=== PATIENT | male | born 2000 | race Caucasian/White ===

== ENCOUNTER 2019-11-06 17:00 | Emergency (ER) | payer OTHER ==
[2019-11-06] MEDS ORDERED: CIPRO500 MG PO (17:21)
== END 2019-11-06 17:42 | disposition home or self-care (01) ==
LOC: ED 17:00
DX: S99.921A Unspecified injury of right foot, initial encounter (principal); W22.8XXA Striking against or struck by other objects, initial encounter; Y93.89 Activity, other specified; Y92.89 Other specified places as the place of occurrence of the external cause; Y99.8 Other external cause status